=== PATIENT | female | born 1980 | race Two or more races ===

== ENCOUNTER 2017-11-08 09:49 | Outpatient (CLI) | payer OTHER | END 2017-11-08 09:54 | disposition home or self-care (01) | LOC: RAD 09:49 → SONOGRAMA 09:49 → RAD 09:54 | DX: N92.5 Other specified irregular menstruation (principal); N84.0 Polyp of corpus uteri; J30.89 Other allergic rhinitis; H11.009 Unspecified pterygium of unspecified eye; E04.1 Nontoxic single thyroid nodule; M25.551 Pain in right hip ==